=== PATIENT | female | born 1980 | race Caucasian/White ===

== ENCOUNTER 2023-11-17 19:55 | Emergency (ER) | payer SELFPAY ==
[2023-11-17 19:56] VITALS: BP 137/87; PULSE 89; RESP 15; TEMP 36.4; O2SAT 98
[2023-11-17 20:31] VITALS: PULSE 73; RESP 15; O2SAT 98
[2023-11-17 20:49] LABS: Basophils % 0.3 %; Eosinophils # 0.2 10^3/uL (0.0-0.8); Eosinophils % 1.8 %; Hematocrit 38.7 % (36-47); Lymphocytes # 1.7 10^3/uL (0.8-4.8); Lymphocytes % 16.4 %; Mean Corpuscular HGB Conc 33.3 g/dL (30-55); Mean Corpuscular Hemoglobin 29.6 pg (27-33); Mean Corpuscular Volume 88.8 fl (85-98); Mean Platelet Volume 8.6 fL (7.4-10.4); Monocytes # 0.7 10^3/uL (0.2-0.9); Monocytes % 6.6 %; Neutrophils # 7.65 10^3/uL (1.8-7.7); Neutrophils % 74.5 %; Nucleated Red Blood Cells % 0 %; Platelet Count 246 10^3/cmm (157-399); Red Blood Count 4.36 10^6/uL (3.85-5.65); Red Cell Distribution Width 12.7 % (12.1-15.1); White Blood Count 10.28 10^3/uL (3.29-11.43)
--- NOTE | 2023-11-17 21:03 | USR_ITS ---
PROCEDURE INFORMATION: Exam: US Abdomen, Limited; Right Upper Quadrant Exam date and time: 11/17/2023 9:35 PM Age: 43 years old Clinical indication: Abdominal pain; Acute; Additional info: Ruq/epi pain, pain with n/v/d TECHNIQUE: Imaging protocol: Real time ultrasound of the abdomen with image documentation. Limited exam focused on the right upper quadrant. COMPARISON: No relevant prior studies available. FINDINGS: Liver: 15.8 cm liver. Echogenic liver consistent with fatty infiltration of the liver. Gallbladder: Normal 2.8 mm gallbladder wall. Multiple gallstones within the gallbladder. Biliary ducts: Normal 4.5 mm common bile duct. Pancreas: Portions of the body and tail the pancreas are obscured by bowel gas. Right kidney: 10.4 x 4.6 x 4.3 cm right kidney. Aorta: 2.0 cm maximum abdominal aortic diameter. Inferior vena cava: 1.5 cm IVC. US/US gall bladder 10098 IMPRESSION: 1. Multiple gallstones within the gallbladder. 2. Echogenic liver consistent with fatty infiltration of the liver.
[2023-11-17 21:07] LABS: Alanine Aminotransferase 63 U/L (0-33); Albumin Level 3.9 g/dL (3.5-5.2); Alkaline Phosphatase 119 U/L (35-105); Anion Gap 14.8 (5-19); Aspartate Amino Transferase 99 U/L (0-32); Blood Urea Nitrogen 14 mg/dL (6-20); Calcium 9.3 mg/dL (8.5-10.5); Carbon Dioxide 23 mmol/L (22-29); Chloride 102 mmol/L (98-107); Globulin 3.2 g/dL (1.3-4.6); Glomerular Filtration Rate 78.3 mL/min (90-130); Glucose 102 mg/dL (65-115); Lipase 22 U/L (13-60); Osmolality Calculated 283 mOsm/kg (285-295); Potassium 3.8 mmol/L (3.5-5.1); Sodium 136 mmol/L (136-145); Total Bilirubin 0.6 mg/dL (0.15-1.2); Total Protein 7.1 g/dL (6.6-8.7)
--- NOTE | 2023-11-17 21:16 | ED_ITS ---
HPI - Abdominal Pain 2 General: Chief Complaint: Abdominal Pain Stated Complaint: upper abd pain Time Seen by Provider: 11/17/23 20:22 Source: patient and family Mode of arrival: ambulatory Limitations: no limitations History of Present Illness: Patient presents emergency department today accompanied by her for evaluation and treatment of acute worsening of right upper quadrant pain. Patient reports last couple of years she has had off-and-on right upper quadrant and epigastric pain but, states is never been this severe. Patient reports pain in the upper abdomen primarily mid and right upper regions with radiation of pain up towards the right shoulder. Patient also states she feels discomfort up into her chest and feels sometimes like it is difficult to breathe or that her chest feels tight. Patient reports that after having lunch this afternoon she began to have multiple episodes of profuse vomiting. Patient reports that for quite some time now, stools have been loose. She denies fevers. When asked about issues with heartburn, patient begins laughing stating that she buys the multi pack of Rolaids at the store and eats them like candy . Patient did try some Pepto-Bismol today as well but, overall has had no improvement of her symptoms. Patient has had issues with reflux at night with vomiting during the night as well. She states she has never told her doctor about this. Review of Systems 2 General: Reports: 10 or more systems reviewed and unremarkable except in HPI and below Physical Exam 2 Const: COMMON NORMALS: patient oriented x3 and alert OTHER: Patient is pleasant, social. Answers her own history. Patient is obviously uncomfortable. HENMT: COMMON NORMALS: normocephalic, atraumatic, hearing grossly normal bilaterally and moist oral mucous membranes HEAD & SCALP: normocephalic and atraumatic Eye: COMMON NORMALS: Equal, round and reactive pupils present, EOMs intact bilaterally and conjunctivae normal CONJUNCTIVA: Yes conjunctivae normal P UPIL: Yes Equal, round and reactive pupils present Neck/C-Spine: COMMON NORMALS: full ROM and no JVD Lymph: LYMPHATIC: no lymphadenopathy noted Resp: COMMON NORMALS: normal respiratory effort, No retractions, No use of accessory muscles and clear to auscultation bilaterally AUSCULTATION: clear to auscultation bilaterally Cardio: COMMON NORMALS: no JVD, regular rate and regular rhythm RATE: r egular rate RHYTHM: regular rhythm GI: OTHER: Normoactive bowel sounds throughout. Abdomen is soft. Patient with tenderness to right upper quadrant but not specifically a positive Schofield sign. Patient with epigastric tenderness. No flank pain. : COMMON NORMALS: Yes no CVA tenderness BLADDER/KIDNEY EXAM: Yes no CVA tenderness Back/Pelvis: COMMON NORMALS: no CVA tenderness, no thoracic nor lumbar tenderness and thoraco-lumbar ROM normal Extremity: COMMON NORMALS: normal to inspection, full ROM and capillary refill normal Neuro: COMMON NORMALS: patient oriented x3 SENSORIUM/ORIENTATION: Yes alert Psych: COMMON NORMALS: mental status grossly normal, Normal thought process present, cooperative, normal affect and activity/motor behavior normal T HOUGHT PROCESS: Normal thought process present Skin: COMMON NORMALS: no rashes or lesions noted and no wounds GENERAL SKIN EXAM: no rashes or lesions noted Course 2 Vital Signs: Vital signs: Vital Signs Temperature 97.5 F L 11/17/23 19:56 Pulse Rate 73 11/17/23 20:31 Respiratory Rate 15 11/17/23 20:31 Blood Pressure 137/87 11/17/23 19:56 Pulse Oximetry 98 11/17/23 20:31 Oxygen Delivery Me thod Room Air 11/17/23 20:31 MDM - Abdominal Pain Medical Decision Making Patient presents emergency department today for evaluation treatment of multiple episodes of vomiting, recurrent issues with right upper quadrant pain-especially while eating, diarrhea, and reflux symptoms. I think it is possible patient has more than 1 thing going on here. Patient seems to have issues with reflux on a very regular basis and self medicates with Rolaids. However, I think she also deals with some gallbladder dysfunction. Patient has elevated LFTs on lab work and ultrasound confirms gallstones. Patient's evaluation for reflux is based more on history and exam. I am referring the patient to general surgery for further discussion of her gallstones and right upper quadrant issues. I recommended some dietary changes in the meantime. I am also providing antinausea medicine. However, I am going to treat the patient for reflux as well. I am giving her prescription for Pepcid and Protonix. Encouraged an oral antacid before bed to help provide a therapeutic layer over the remaining stomach acid to help protect the esophagus and throat from erosion-especially through the next couple of weeks while the medication begins to work. Patient was given strict return precautions for any change or worsening. She should have follow-up with her primary care doctor for general recheck. Patient verbalizes understanding and agreement to treatment plan. Differential Diagnosis Likely abdominal pain; Unlikely acute appendicitis, calculus of kidney, constipation, diverticulitis, endometriosis, gastroenteritis, pancreatitis or small bowel obstruction Lab Data 11/17/23 20:27 11/17/23 20: Labs/Radiology: Radiology Impressions Gallbladder Ultrasound 11/17/23 21:03 IMPRESSION: 1. Multiple gallstones within the gallbladder. 2. Echogenic liver consistent with fatty infiltration of the liver. Laboratory Results WBC 10.28 10^3/uL (3.29-11.43) 11/17/23 20: RBC 4.36 10^6/uL (3.85-5.65) 11/17/23 20: Hgb 12.90 g/dL (11.27-16.99) 11/17/23 20: Hct 38.7 % (36-47) 11/17/23 20: MCV 88.8 fl (85-98) 11/17/23 20: MCH 29.6 pg (27-33) 11/17/23 20: MCHC 33.3 g/dL (30-55) 11/17/23 20: RDW 12.7 % (12.1-15.1) 11/17/23: Plt Count 246 10^3/cmm (157-399) 11/17/23 20: MPV 8.6 fL (7.4-10.4) 11/17/23 20: Neut % (Auto) 74.5 % 11/17/23 20: Lymph % (Auto) 16.4 % 11/17/23 20: Armstrong % (Auto) 6.6 % 11/17/23 20: Eos % (Auto) 1.8 % 11/17/23 20: Baso % (Auto) 0.3 % 11/17/23: Neut # (Auto) 7.65 10^3/uL (1.8-7.7) 11/17/23 20: Lymph # (Auto) 1.7 10^3/uL (0.8-4.8) 11/17/23 20: Armstrong # (Auto) 0.7 10^3/uL (0.2-0.9) 11/17/23 20:27 Eos # (Auto) 0.2 10^3/uL (0.0-0.8) 11/17/23 20: Baso # (Auto) 0.0 10^3/uL (0.0-0.1) 11/17/23 20: Nucleated RBC % (auto) 0 % 11/17/23: Nucleated RBCs # 0.0 /100WBC 11/17/23 20: Sodium 136 mmol/L (136-145) 11/17/23 20: Potassium 3.8 mmol/L (3.5-5.1) 11/17/23: Chloride 102 mmol/L (98-107) 11/17/23: Carbon Dioxide 23 mmol/L (22-29) 11/17/23 20: Anion Gap 14.8 (5-19) 11/17/23 20: BUN 14 mg/dL (6-20) 11/17/23: Creatinine 0.8 mg/dL (0.5-0.9) 11/17/23 20: GFR Calculation 78.3 mL/min (90-130) L 11/17/23: Glucose 102 mg/dL (65-115) 11/17/23: Calculated Osmolality 283 mOsm/kg (285-295) L 11/17/23: Calcium 9.3 mg/dL (8.5-10.5) 11/17/23: Total Bilirubin 0.6 mg/dL (0.15-1.2) 11/17/23: AST 99 U/L (0-32) H 11/17/23 20: ALT 63 U/L (0-33) H 11/17/23 20: Alkaline Phosphatase 119 U/L (35-105) H 11/17/23 20: Total Protein 7.1 g/dL (6.6-8.7) 11/17/23 20: Albumin 3.9 g/dL (3.5-5.2) 11/17/23 20: Globulin 3.2 g/dL (1.3-4.6) 11/17/23: Lipase 22 U/L (13-60) 11/17/23 20:27 All radiology interpretation(s) finalized by discharge Discharge Plan Discharge Patient Disposition: Home Clinical Impression: Cholelithiasis, Elevated LFTs, Abdominal pain, RUQ, GERD (gastroesophageal reflux disease) Condition: Stable Prescriptions: New ondansetron 4 mg tablet,disintegrating 4 mg PO Q8H 5 Days Qty: 15 0RF Protonix 40 mg tablet,delayed release (DR/EC) 40 mg PO DAILY 56 Days Qty: 60 0RF Pepcid AC 20 mg tablet 20 mg PO BID 42 Days Qty: 84 0RF Discharge Orders: Discharge ED (Routine); Ordered 11/17/23 Ordered By: Delia Thakur Discharge Diet: As Directed Discharge Activity: Increase activity as tolerated Patient Instructions: Gallstones (ED), Low Fat Diet (ED), GERD (Gastroesophageal Reflux Disease) (ED) Activity Restrictions/Additional Instructions: Labs today did show elevation in your liver function test which is also reflective of gallbladder issues. The ultrasound today confirms findings of gallstones. I think you are suffering from 2 different issues-gallbladder issues and reflux issues. We do recommend some dietary changes to help with your gallbladder issues and have also provided you antinausea medication but, for your reflux I am providing you some strong medication to help decrease the amount of stomach acid produced. I do recommend taking these medications in addition to an oral Tums or Gaviscon just prior to bed to provide a protective coating over any remaining acid in the stomach could you still be dealing with reflux for the next week or so. This will help protect your esophagus and back of your throat from acid erosion. I have requested a follow-up appointment with general surgery to discuss your recurrent right upper quadrant issues and findings of gallstones as you will most likely want to have a conversation about having her gallbladder removed. If for any reason in the meantime you have any severe worsening of your pain, profuse vomiting, or fevers you need to be seen and reevaluated here in the ER. Coding Level of Care Code ED Carpenter Inspector for Marcello Armendariz
[2023-11-17] MEDS: lidocaine 2% viscous 15 ML, aluminum-mag hydrox-simethicon 30 ML, sucralfate oral liq 1 GM PO (22:06)
[2023-11-17] MEDS: famotidine 20 mg/2 mL INJ IVP (22:07)
[2023-11-17] MEDS: pantoprazole 40 mg SDV IVP (22:07)
[2023-11-17] MEDS: metoclopramide 5 mg/mL SDV 2 mL 10 MG IVP (22:07)
[2023-11-17] MEDS: sodium chloride 0.9% 1,000 ML 999 ML IV (22:16)
[2023-11-17 23:04] VITALS: BP 115/84; PULSE 67; RESP 24; O2SAT 96
[2023-11-18 02:15] VITALS: BP 119/80; PULSE 72; RESP 20; O2SAT 97
--- NOTE | 2023-11-19 08:40 | DCPLANNER ---
Message was sent to general surgery on 11/19/23 at 0840. Clinic to contact patient.
== END 2023-11-17 23:38 | disposition home or self-care (01) ==
PROVIDERS: Emergency Provider Physician Assistant
DX: K80.20 Calculus of gallbladder without cholecystitis without obstruction (principal); K21.9 Gastro-esophageal reflux disease without esophagitis; R79.89 Other specified abnormal findings of blood chemistry
CPT/HCPCS: 76705; 80053; 83690; 85025; 96374; 96375; 99284; C9113; J2765; J3490; J7030

== ENCOUNTER 2024-02-14 09:34 | Day surgery (SDC) | payer OTHER, SELFPAY ==
[2024-02-14 09:47] VITALS: BP 110/74; PULSE 82; RESP 18; TEMP 36.1; O2SAT 98; BMI 40.8
[2024-02-14] MEDS: sodium chloride 0.9% 1,000 ML 30 ML IV (09:51)
--- NOTE | 2024-02-14 10:39 | ANES.PREANE2 ---
Pre-Anesthetic Assessment Height/Weight: Height 1.68 m Weight 114.759 kg Temp Pulse Resp BP Pulse Ox O2 Del Method 97.0 F L 82 18 110/74 98 Room Air 02/14/24 09:47 02/14/24 09:47 02/14/24 09:47 02/14/24 09:47 02/14/24 09:47 02/14/24 09:47 Preop Diagnosis: GERD?diarrhea Operation Date: 02/14/24 11:15 Proposed Procedures p EGD(Not Applicable) - Gurdeep Kat DO s Colonoscopy(Not Applicable) - Gurdeep Kat DO Familial anesthetic complications: none Was Beta [place] taken within 24 hours: N/A Was Clonidine taken within 24 hours: N/A Social Vape Exam alert, oriented x 3, clear to auscultation bilaterally and regular rate & rhythm Airway Submandibular: within normal limits Cervical ROM: within normal limits Mallampati: Class II Dentition: full Pulmonary Sleep Apnea CV/HEM None reported None reported Hepatic None reported GI Gastroesophageal Reflux Disease Metabolic Morbid Obesity and Thyroid Disease (History) Musc/skel Lower Back Pain and Osteoarthritis/DJD Neuropsych None reported Anesthetic Plan ASA status: 2 Anesthesia: MAC Risk of > 500 ml blood loss (7ml/kg in children): No Medications/Allergies Home Medications Medication Instructions Recorded Confirmed Last Taken Type gabapentin 300 mg capsule 300 mg PO TID 02/12/24 02/12/24 02/13/24 History pantoprazole 40 mg tablet,delayed 40 mg PO BID 02/12/24 02/12/24 02/13/24 History release Allergies Allergy/AdvReac Type Severity Reaction Status Date / Time No Known Allergies Allergy Verified 01/11/24 10:24 Current Medications Generic Name Dose Route Start Last Admin Trade Name Freq PRN Reason Stop Dose Admin Sodium Chloride 1,000 mls @ 30 mls/hr 02/14/24 09:45 02/14/24 09:51 Sodium Chloride 0.9% IV 02/15/24 09:44 30 mls/hr .Q24H AKIKO Administration Data Anesthesia Cardiac Studies: No Data to Display
--- NOTE | 2024-02-14 11:43 | PM.HP ---
Providers/Chief Complaint Primary Care Provider: Saida Negrete Chief Complaint: R19.7, K80.20, K21.9, K92.2 History of Present Illness Piper Tomas is a 43 year old female Review of Systems General: Reports: 10 or more systems reviewed and unremarkable except in HPI and below Medications/Allergies Home Medications Medication Instructions Recorded Confirmed Last Taken Type gabapentin 300 mg capsule 300 mg PO TID 02/12/24 02/12/24 02/13/24 History pantoprazole 40 mg tablet,delayed 40 mg PO BID 02/12/24 02/12/24 02/13/24 History release Allergies Allergy/AdvReac Type Severity Reaction Status Date / Time No Known Allergies Allergy Verified 01/11/24 10:24 Vitals/I&O/Wt Last Vital Signs Temp 97.0 F L 02/14/24 09:47 Pulse 82 02/14/24 09:47 Resp 18 02/14/24 09:47 BP 110/74 02/14/24 09:47 Pulse Ox 98 02/14/24 09:47 O2 Del Method Room Air 02/14/24 09:47 Weight last 48 hrs Weight 253 lb A&P Assessment and plan (1) GI bleed: (2) Diarrhea: (3) GERD (gastroesophageal reflux disease): (4) Abdominal pain, RUQ: Plan EGD and colonoscopy Attestations Medical Necessity Statement*: Home Coding Level of Care Code Acute Code for Chg Fwd Diagnoses GI bleed K92.2 Diarrhea R19.7 GERD (gastroesophageal reflux disease) K21.9 Abdominal pain, RUQ R10.11
[2024-02-14 12:06] VITALS: BP 81/58; PULSE 69; RESP 18; TEMP 36.1; O2SAT 92
[2024-02-14 12:20] VITALS: BP 100/70; PULSE 65; RESP 18; O2SAT 100
[2024-02-14 12:32] VITALS: BP 105/72; PULSE 60; RESP 18; O2SAT 100
[2024-02-14 14:07] LABS: C.Diff PCR (Lab) NEGATIVE (Negative)
--- NOTE | 2024-02-14 15:00 | ANE.PACU2 ---
Inpatient post-anesthesia follow up: Airway intact: Yes Vital signs: Temperature 97.0 F Pulse Rate 60 Respiratory Rate 18 Blood Pressure 105/72 Pulse Oximetry 100 Oxygen Delivery Me thod Room Air Oxygen Flow Rate Fraction of Inspir ed Oxygen Hydration adequate: Yes Nausea and vomiting: No Pain level: 2 Mental status: Baseline
== END 2024-02-14 12:55 | disposition home or self-care (01) ==
PROVIDERS: PCP Nurse Practitioner; Visit Provider Surgery
PROC: 0DJ08ZZ Inspection of Upper Intestinal Tract, Via Natural or Artificial Opening Endoscopic (ICD-10-PCS; CPT 43235; principal; 2024-02-14 11:15)
PROC: 0DJD8ZZ Inspection of Lower Intestinal Tract, Via Natural or Artificial Opening Endoscopic (ICD-10-PCS; CPT 45378; 2024-02-14 11:15)
DX: R19.7 Diarrhea, unspecified (principal); D12.5 Benign neoplasm of sigmoid colon; K21.9 Gastro-esophageal reflux disease without esophagitis; R10.11 Right upper quadrant pain; E66.01 Morbid (severe) obesity due to excess calories; Z68.41 Body mass index [BMI] 40.0-44.9, adult; K29.50 Unspecified chronic gastritis without bleeding
CPT/HCPCS: 43239; 45385; 82274; 83630; 87045; 87177; 87209; 87427; 87449; 87493; 88305; 88342; J2704; J7030

== ENCOUNTER 2024-03-11 08:09 | Day surgery (SDC) | payer OTHER, SELFPAY ==
[2024-03-11] VITALS (11 sets, daily range): BP systolic 93–127; BP diastolic 53–81; PULSE 59–89; RESP 14–18; TEMP 36.1–36.5; O2SAT 92–98; BMI 41.1
[2024-03-11] MEDS: sodium chloride 0.9% 1,000 ML 30 ML IV (08:53)
--- NOTE | 2024-03-11 09:24 | W.PM.OPSUD ---
Surgery/Procedure H&P Update DATE OF PROCEDURE: March 11, 2024 DATE H&P PERFORMED: 02/28/24 H&P UPDATE INFORMATION: I have reviewed H&P completed within last 30 days, I have examined patient prior to procedure and No changes to prior documentation PLANNED PROCEDURE: Operation Date: 03/11/24 09:50 Proposed Procedures p Laparoscopic Cholecystectomy 89828, K80.20(Not Applicable) - Gurdeep Kat,
--- NOTE | 2024-03-11 09:34 | ANES.PREANE2 ---
Pre-Anesthetic Assessment Height/Weight: Height 1.68 m Weight 115.666 kg Temp Pulse Resp BP Pulse Ox O2 Del Method 97.3 F L 79 16 127/81 98 Room Air 03/11/24 08:21 03/11/24 08:21 03/11/24 08:21 03/11/24 08:21 03/11/24 08:21 03/11/24 08:21 Operation Date: 03/11/24 09:50 Proposed Procedures p Laparoscopic Cholecystectomy 47676, K80.20(Not Applicable) - Gurdeep Kat DO Familial anesthetic complications: None Was Beta [place] taken within 24 hours: N/A Was Clonidine taken within 24 hours: N/A Last intake: Intake Last Liquid Date 03/10/24 Last Liquid Time 22:00 Last Solid Date 03/10/24 Last Solid Time 17:30 Social Tobacco and No alcohol Exam alert, oriented x 3, clear to auscultation bilaterally and regular rate & rhythm Airway Mallampati: Class III Dentition: full GI Gastroesophageal Reflux Disease Anesthetic Plan ASA status: 2 Anesthesia: General Risk of > 500 ml blood loss (7ml/kg in children): No Medications/Allergies Home Medications Medication Instructions Recorded Confirmed Last Taken Type gabapentin 300 mg capsule 300 mg PO TID 02/12/24 03/10/24 03/09/24 History pantoprazole 40 mg tablet,delayed 40 mg PO DAILY 02/12/24 03/10/24 03/09/24 History release Allergies Allergy/AdvReac Type Severity Reaction Status Date / Time No Known Allergies Allergy Verified 02/28/24 13:34 Current Medications Generic Name Dose Route Start Last Admin Trade Name Araceli PRN Reason Stop Dose Admin Sodium Chloride 1,000 mls @ 30 mls/hr 03/11/24 08:15 03/11/24 08:53 Sodium Chloride 0.9% IV 03/12/24 08:14 30 mls/hr .Q24H AKIKO Administration PFSH Anesthesia Social History Smoking and tobacco/nicotine status: never used tobacco/nicotine Data Anesthesia Cardiac Studies: No Data to Display
[2024-03-11] MEDS: ceFAZolin 2,000 MG in sodium chloride 0.9% (plus) 50 ML 100 MG IV (09:36)
[2024-03-11] MEDS: lidocaine-epi 1% 20 mL INJ INJECTION (10:00)
--- NOTE | 2024-03-11 10:10 | P.OP_ITS ---
Operative Report Date of procedure: March 11, 2024 Surgeon: Gurdeep Kat DO Brief History: This is a very pleasant 43-year-old female who was diagnosed with symptomatic cholelithiasis in my office. Laparoscopic cholecystectomy is indicated. The risk and benefits were explained and documented. Procedure: Preoperative diagnosis: Symptomatic cholelithiasis Postoperative diagnosis: Same Procedure performed: Laparoscopic cholecystectomy Surgeon: Dr. Gurdeep Kat DO Estimated blood loss: 5 mL Specimens: Gallbladder to pathology Complications: None apparent Description of procedure: Patient was wheeled into the operative room and placed on the OR table in a supine position. Abdomen was inspected prepped and draped in usual sterile fashion. Time-out was performed and all present were in agreement. A 15 blade scalp was used to make a stab incision in the left upper quadrant and intra- abdominal insufflation was achieved using a Veress needle. After localizing the tissue incisions were made and a 5 millimeter trocar was placed into the umbilicus as well as 2 in the right upper quadrant. A 12 millimeter trocar was placed in the epigastrium. Gallbladder was grasped and elevated. The triangle of Calot was carefully dissected using blunt dissection and electrocautery until the triangle of Calot clearly identified. The cystic duct was clipped proximally and double clipped distally. The duct was then ligated proximally. The cystic artery was doubly clipped and ligated. The gallbladder was then removed from the liver bed using electrocautery. The gallbladder was removed from the abdomen using an Endo-Catch bag through the epigastric incision. The liver bed was inspected and no bleeding was seen. The abdomen was irrigated and suctioned. All ports removed. Skin was washed and dried. Incisions were closed with 4-0 Monocryl in a subcuticular interrupted fashion. Skin glue was applied. Patient tolerated the procedure well.
--- NOTE | 2024-03-11 13:00 | SUR.PHASEII ---
surgical incisions dry and intact
== END 2024-03-11 12:45 | disposition home or self-care (01) ==
PROVIDERS: PCP Nurse Practitioner; Visit Provider Surgery
PROC: 0FT44ZZ Resection of Gallbladder, Percutaneous Endoscopic Approach (ICD-10-PCS; CPT 47562; principal; 2024-03-11 09:40)
DX: K80.10 Calculus of gallbladder with chronic cholecystitis without obstruction (principal); K21.9 Gastro-esophageal reflux disease without esophagitis
CPT/HCPCS: 47562; 88304; J0690; J1100; J1170; J2250; J2371; J2405; J2704; J2710; J3010; J3490; J7030